=== PATIENT | male | born 1985 | race Caucasian/White ===

== ENCOUNTER 2019-03-15 02:36 | Emergency (ER) | payer BC ==
[~2019-03-15] VITALS: Ht 195.6 cm; Wt 140.6 kg
[2019-03-15] MEDS ORDERED: DOXYCYCLINE 10100 M2 PO (02:53)
[2019-03-15] MEDS ORDERED: HYDROCODON-ACE1 EAC7 PO (02:54)
[2019-03-15] MEDS ORDERED: VITAMIN D50000 UNIT PO (02:54)
[2019-03-15 03:11] LABS: INFLUENZA A ANTIGEN Negative (Negative); INFLUENZA B ANTIGEN Negative (Negative)
[2019-03-15 03:14] LABS: HEMATOCRIT 47.3 % (42.0-52.0); HEMOGLOBIN 16.7 gm/dL (14.0-18.0); MCH 29.4 pg (26.0-34.0); MCHC 35.2 g/dL (28.0-37.0); MCV 83.5 fL (80.0-100.0); MPV 9.4 fl. (7.2-11.1); NUCLEATED RBCS 0 /100WBC; PLATELET COUNT* 201 thou/uL (150-400); RBC 5.67 mil/uL (4.50-6.00)
[2019-03-15 03:25] LABS: CALCIUM 9.9 mg/dL (8.5-10.1); POTASSIUM 3.9 mmol/L (3.5-5.1)
[2019-03-15 03:29] LABS: TOTAL PROTEIN 8.2 g/dL (6.4-8.2)
[2019-03-15 04:14] LABS: ABSOLUTE BASOPHILS 0.1 thou/uL (0.0-0.2); ABSOLUTE EOSINOPHILS 0.1 thou/uL (0.0-0.7); ABSOLUTE LYMPHOCYTES 0.6 thou/uL (0.8-5.3); ABSOLUTE MONOCYTES 0.2 thou/uL (0.0-1.2)
[2019-03-15 04:15] LABS: PLATELET ESTIMATE ADEQUATE
[2019-03-15 04:34] LABS: URINE BILIRUBIN NEGATIVE (Negative); URINE BLOOD NEGATIVE (Negative); URINE CLARITY CLEAR; URINE COLOR YELLOW; URINE GLUCOSE-RANDOM NEGATIVE (Negative); URINE KETONES NEGATIVE (Negative); URINE LEUKOCYTES-REFLEX NEGATIVE (Negative); URINE NITRITE-REFLEX NEGATIVE (Negative); URINE PROTEIN NEGATIVE (Negative); URINE UROBILINOGEN 0.2 E.U./dl (0.2-1.0)
[2019-03-15] MEDS ORDERED: CARAFATE 1 GM TA1 GM PO (05:06)
[2019-03-15] MEDS ORDERED: PRILOSEC OTC20 MG PO (05:06)
[2019-03-15] MEDS ORDERED: ZOFRAN ODT4 MG PO (05:10)
[2019-03-15 05:19] VITALS: BP 126/74
== END 2019-03-15 05:19 | disposition home or self-care (01) ==
LOC: M.ERS 02:36
PROVIDERS: Emergency Medicine
DX: K29.70 Gastritis, unspecified, without bleeding (principal); Z88.6 Allergy status to analgesic agent

== ENCOUNTER 2019-08-17 09:32 | Emergency (ER) | payer BC ==
[~2019-08-17] VITALS: Ht 195.6 cm; Wt 149.7 kg
[~2019-08-17 09:32] MED LIST: CARAFATE 1 GM TA1 GM PO; DOXYCYCLINE 10100 M2 PO; HYDROCODON-ACE1 EAC7 PO; PRILOSEC OTC20 MG PO; VITAMIN D50000 UNIT PO; ZOFRAN ODT4 MG PO
[2019-08-17] MEDS ORDERED: CLARITIN10 MG PO (09:43)
[2019-08-17] MEDS ORDERED: ALLEGRA ALLERGY60 MG PO (09:43)
[2019-08-17 10:07] LABS: ABSOLUTE BASOPHILS 0.1 thou/uL (0.0-0.2); ABSOLUTE EOSINOPHILS 0.2 thou/uL (0.0-0.7); ABSOLUTE LYMPHOCYTES 1.7 thou/uL (0.8-5.3); ABSOLUTE MONOCYTES 0.4 thou/uL (0.0-1.2); ABSOLUTE NEUTROPHILS 2.5 thou/uL (1.6-8.1); BASOPHILS 1.7 %; EOSINOPHILS 4.2 %; HEMATOCRIT 46.3 % (42.0-52.0); HEMOGLOBIN 16.4 gm/dL (14.0-18.0); LYMPHOCYTES 34.8 %; MCH 29.9 pg (26.0-34.0); MCHC 35.5 g/dL (28.0-37.0); MCV 84.3 fL (80.0-100.0); MONOCYTES 8.8 %; MPV 8.7 fl. (7.2-11.1); NUCLEATED RBCS 0 /100WBC; PLATELET COUNT* 202 thou/uL (150-400); POLYS 50.5 %; RBC 5.49 mil/uL (4.50-6.00); RDW-CV 13.8 % (10.5-14.5); WBC 4.9 thou/uL (4.0-11.0)
[2019-08-17 10:19] LABS: CALCIUM 8.8 mg/dL (8.5-10.1); CREATININE 1.1 mg/dL (0.6-1.3); POTASSIUM 3.5 mmol/L (3.5-5.1)
[2019-08-17 10:22] LABS: PROTIME 10.6 Seconds (9.20-11.50)
[2019-08-17 10:30] LABS: ALBUMIN 3.5 g/dL (3.4-5.0); TOTAL BILIRUBIN 0.6 mg/dL (<0.1-1.0); TOTAL PROTEIN 7.8 g/dL (6.4-8.2)
[2019-08-17] MEDS ORDERED: MEDROLDOSEPACK PO (12:04)
[2019-08-17 12:19] VITALS: BP 119/73
--- NOTE | 2019-08-17 16:19 | EKG ---
[place] [address] ELECTROCARDIOGRAM REPORT Name: TONY KOVACS Room: [facility]#: [id number] Admission: 08/17/19 Attend Phys: Discharge: 08/17/19 Date of : 87 Date of Service: 08/17/19 0955 Report #: [id number] THIS REPORT FOR: //name// [facility] ED Test Date: 2019-08-17 Test Time: 09:55:39 Pat Name: TONY KOVACS Department: Room: Gender: [employer]: : 1985 Requested By: Anu Lancaster Order Number: [id number] MD: Donato Sarmiento Measurements Intervals [place] Rate: 63 P: 7 DE: 169 QRS: 7 QRSD: 84 T: 61 QT: 548 QTc: 562 Interpretive Statements Sinus rhythm Borderline T wave abnormalities Prolonged QT interval No previous ECG available for comparison Electronically Signed On 08-17-2019 16:18:00 CDT by Donato Sarmiento [email or web address] <ELECTRONICALLY SIGNED> By: Donato Sarmiento MD, [facility] 08/17/19 1618 0955 0955 Donato Sarmiento MD, [facility] /EPI
== END 2019-08-17 12:19 | disposition home or self-care (01) ==
LOC: M.ERS 09:32
PROVIDERS: Personal Emergency Response Attendant
DX: R07.89 Other chest pain (principal); T50.8X5A Adverse effect of diagnostic agents, initial encounter; Z87.891 Personal history of nicotine dependence; Z91.041 Radiographic dye allergy status; Z88.6 Allergy status to analgesic agent; Z88.8 Allergy status to other drugs, medicaments and biological substances; Y92.89 Other specified places as the place of occurrence of the external cause